=== PATIENT | female | born 1945 | race African-American/Black ===

== ENCOUNTER 2020-03-18 13:00 | Inpatient (IN) ==
[2020-03-18] MEDS ORDERED: SODIUM CHLORIDE 0.9% 1,000 ML IV STA (13:35)
[2020-03-18 14:35] LABS: Basophils % 0.2 % (0.0-0.8); Eosinophils % 0.4 % (0.00-10.9); Hematocrit 33.7 VOL% (35.7-47.0); Hemoglobin 10.7 GM/DL (12.0-16.0); Immature Granulocytes % 0.6 %; Immature Granulocytes Absolute 0.05 #; Lymphocytes % 11.4 % (21.3-54.2); Mean Corpuscular HGB Conc 31.8 GM/DL (32-36); Mean Corpuscular Volume 88.7 FL (87-102); Mean Platelet Volume 11.7 FL (9.6-12.0); Monocytes % 7.6 % (1.7-12.7); Neutrophils % 79.8 % (38.7-73.9); Platelet Count 194 T/CUMM (130-400); Red Cell Distribution Width 14.8 % (9.3-17.3); White Blood Count 8.9 T/CUMM (4-12)
[2020-03-18 14:50] LABS: Alanine Aminotransferase 17 U/L (13-56); Albumin 2.6 G/DL (3.4-5.0); Alkaline Phosphatase 95 U/L (45-117); Aspartate Amino Transferase 23 U/L (0-37); Bilirubin,Total < 0.39 MG/DL (0.2-1.0); Blood Urea Nitrogen 69 MG/DL (7-18); Estimated Glom Filtration Rate 33 ML/MIN; Ferritin 381.9 ng/ml (8-252); Glucose 201 MG/DL (74-106); Osmolality,Calculated 300.7 MOS/KG (273-304); Total Protein 7.4 G/DL (6.4-8.3)
[2020-03-18] MEDS ORDERED: PIPERACILLIN/TAZOBACTAM 3,375 MG in SODIUM CHLORIDE 0.9% 100 ML IV STA (15:13)
[2020-03-18 15:14] LABS: Bacteria,Urine Many /HPF (Few); Bilirubin,Urine Negative (Negative); Blood, Urine Negative (Negative); Glucose,Urine (UA) Negative (Negative); Ketones,Urine Negative (Negative); Mucus,Urine Occasional /LPF (Occasional); Nitrite,Urine Positive (Negative); Protein,Urine Negative; RBC,Urine 1 /HPF (0-4); Urine Appearance Slightly Hazy (Clear); Urine Color Yellow (Yellow); Urine Specific Gravity 1.016 (1.001-1.035); Urine Urobilinogen < 2.0 EU/DL (0.2-1.0); WBC,Urine 10 /HPF (0-6)
[2020-03-18] MEDS ORDERED: DEXAMETHASONE 4 MG/1 ML VIAL IV STA (15:15)
[2020-03-18] MEDS ORDERED: AZITHROMYCIN INJ 500 MG in SODIUM CHLORIDE 0.9% 250 ML IV STA (15:32)
[2020-03-18] MEDS ORDERED: ZALEPLON 5 MG CAPSULE PO PRN (15:35)
[2020-03-18] MEDS ORDERED: DEXTROSE 50% 25 GM/50 ML VIAL IV PRN ×2 (15:35)
[2020-03-18] MEDS ORDERED: GLUCAGON 1 MG VIAL IM PRN (15:35)
[2020-03-18] MEDS ORDERED: ONDANSETRON 4 MG/2 ML VIAL IV PRN (15:35)
[2020-03-18] MEDS ORDERED: ACETAMINOPHEN 325 MG TABLET PO PRN (15:35)
[2020-03-18] MEDS: ENOXAPARIN 40 MG/0.4 ML SYRINGE SUBCUT SCH (16:37)
[2020-03-18] MEDS: INSULIN REGULAR 100 UNIT/ML SUBCUT SCH ×2 (18:00→22:30)
[2020-03-18] MEDS: SODIUM CHLORIDE 0.9% 1,000 ML IV SCH (18:00)
[2020-03-18] MEDS: CETIRIZINE 5 MG TABLET PO SCH (18:30)
[2020-03-18] MEDS ORDERED: ALBUTEROL INHALER 18 GM INH PRN (19:29)
[2020-03-19] MEDS ORDERED: INFLUENZA VIRUS VACCINE 0.5 ML SYRINGE IM ONE (00:47)
[2020-03-19] MEDS: ENOXAPARIN 40 MG/0.4 ML SYRINGE SUBCUT SCH (04:30)
[2020-03-19 05:40] LABS: Basophils % 0.2 % (0.0-0.8); Hematocrit 36.6 VOL% (35.7-47.0); Hemoglobin 11.7 GM/DL (12.0-16.0); Immature Granulocytes % 0.5 %; Immature Granulocytes Absolute 0.03 #; Lymphocytes # 0.6 10*3/uL (1.4-4.0); Lymphocytes % 9.1 % (21.3-54.2); Mean Corpuscular Volume 89.3 FL (87-102); Mean Platelet Volume 12.1 FL (9.6-12.0); Monocytes % 3.1 % (1.7-12.7); Neutrophils % 87.1 % (38.7-73.9); Platelet Count 173 T/CUMM (130-400); Red Cell Distribution Width 14.6 % (9.3-17.3); White Blood Count 6.1 T/CUMM (4-12)
[2020-03-19 06:00] LABS: Platelet Estimate Adequate
[2020-03-19 06:15] LABS: Albumin 2.4 G/DL (3.4-5.0); Bilirubin,Total 0.8 MG/DL (0.2-1.0); Ferritin 412.3 ng/ml (8-252); Osmolality,Calculated 298.5 MOS/KG (273-304); Total Protein 7.4 G/DL (6.4-8.3)
[2020-03-19] MEDS ORDERED: SODIUM POLYSTYRENE SULFATE 15 GM/60 ML BOTTLE PO STA (07:43)
[2020-03-19] MEDS: INSULIN REGULAR 100 UNIT/ML SUBCUT SCH ×4 (08:46→20:22)
[2020-03-19] MEDS: ZINC GLUCONATE 50 MG TABLET PO SCH (08:47)
[2020-03-19] MEDS: CLOPIDOGREL 75 MG TABLET PO SCH (08:47)
[2020-03-19] MEDS: ASCORBIC ACID 500 MG TABLET PO SCH (08:47)
[2020-03-19] MEDS: CETIRIZINE 5 MG TABLET PO SCH (08:47)
[2020-03-19] MEDS: CHOLECALCIFEROL 1,000 UNIT TABLET PO SCH (08:47)
[2020-03-19] MEDS: FUROSEMIDE 20 MG TABLET PO SCH (08:47)
[2020-03-19] MEDS: FAMOTIDINE 20 MG TABLET PO SCH (08:47)
[2020-03-19] MEDS: DEXAMETHASONE 10 MG/1 ML VIAL IV SCH (08:53)
[2020-03-19] MEDS: SODIUM BICARB INJ 100 MEQ in SODIUM CHLORIDE 0.45% 1,000 ML IV SCH (14:45)
[2020-03-19] MEDS: LEVOFLOXACIN INJ 750 MG in PREMIX 1 EACH IV SCH (15:26)
[2020-03-20] MEDS: SODIUM BICARB INJ 100 MEQ in SODIUM CHLORIDE 0.45% 1,000 ML IV SCH (00:50)
[2020-03-20] MEDS: SODIUM CHLORIDE 0.9% 1,000 ML IV SCH ×2 (00:53→00:54)
[2020-03-20 06:41] LABS: Hematocrit 33.4 VOL% (35.7-47.0); Hemoglobin 11.2 GM/DL (12.0-16.0); Immature Granulocytes % 0.7 %; Immature Granulocytes Absolute 0.05 #; Lymphocytes # 1.1 10*3/uL (1.4-4.0); Lymphocytes % 14.4 % (21.3-54.2); Mean Corpuscular HGB Conc 33.5 GM/DL (32-36); Mean Corpuscular Volume 85.4 FL (87-102); Mean Platelet Volume 11.9 FL (9.6-12.0); Monocytes % 6.9 % (1.7-12.7); NRBC # 0.03 10*3/uL; Platelet Count 177 T/CUMM (130-400); Red Blood Count 3.91 MC/CUMM (3.8-5.5); Red Cell Distribution Width 14.3 % (9.3-17.3); White Blood Count 7.3 T/CUMM (4-12)
[2020-03-20 06:58] LABS: Calcium 8.5 MG/DL (8.5-10.1); Ferritin 406.6 ng/ml (8-252); Osmolality,Calculated 297.1 MOS/KG (273-304)
[2020-03-20 08:03] LABS: Sedimentation Rate-Westergren 95 MM/HR (0-30)
[2020-03-20] MEDS: INSULIN REGULAR 100 UNIT/ML SUBCUT SCH ×4 (08:37→20:55)
[2020-03-20] MEDS: DEXAMETHASONE 10 MG/1 ML VIAL IV SCH (08:37)
[2020-03-20] MEDS: ASCORBIC ACID 500 MG TABLET PO SCH (08:37)
[2020-03-20] MEDS: CETIRIZINE 5 MG TABLET PO SCH (08:37)
[2020-03-20] MEDS: ENOXAPARIN 40 MG/0.4 ML SYRINGE SUBCUT SCH (08:37)
[2020-03-20] MEDS: CHOLECALCIFEROL 1,000 UNIT TABLET PO SCH (08:38)
[2020-03-20] MEDS: ZINC GLUCONATE 50 MG TABLET PO SCH (08:38)
[2020-03-20] MEDS: FUROSEMIDE 20 MG TABLET PO SCH (08:38)
[2020-03-20] MEDS: FAMOTIDINE 20 MG TABLET PO SCH (08:38)
[2020-03-20] MEDS: CLOPIDOGREL 75 MG TABLET PO SCH (08:38)
[2020-03-20] MEDS: ALBUTEROL INHALER 18 GM INH SCH (18:05)
[2020-03-21] MEDS: ALBUTEROL INHALER 18 GM INH SCH ×4 (00:32→19:09)
[2020-03-21 04:55] LABS: Basophils % 0.1 % (0.0-0.8); Hematocrit 36.1 VOL% (35.7-47.0); Hemoglobin 11.8 GM/DL (12.0-16.0); Immature Granulocytes % 0.7 %; Immature Granulocytes Absolute 0.05 #; Lymphocytes # 1.2 10*3/uL (1.4-4.0); Mean Corpuscular HGB Conc 32.7 GM/DL (32-36); Monocytes % 7.7 % (1.7-12.7); Neutrophils % 74.5 % (38.7-73.9); Platelet Count 177 T/CUMM (130-400); Red Blood Count 4.15 MC/CUMM (3.8-5.5)
[2020-03-21 05:15] LABS: Calcium 8.7 MG/DL (8.5-10.1); Ferritin 374.9 ng/ml (8-252); Osmolality,Calculated 299.1 MOS/KG (273-304)
[2020-03-21 06:20] LABS: Sedimentation Rate-Westergren 75 MM/HR (0-30)
[2020-03-21] MEDS ORDERED: DEXAMETHASONE 10 MG/1 ML VIAL IV SCH (09:00)
[2020-03-21] MEDS: ASCORBIC ACID 500 MG TABLET PO SCH (09:14)
[2020-03-21] MEDS: CHOLECALCIFEROL 1,000 UNIT TABLET PO SCH (09:14)
[2020-03-21] MEDS: CLOPIDOGREL 75 MG TABLET PO SCH (09:14)
[2020-03-21] MEDS: INSULIN REGULAR 100 UNIT/ML SUBCUT SCH ×4 (09:15→21:10)
[2020-03-21] MEDS: ZINC GLUCONATE 50 MG TABLET PO SCH (09:15)
[2020-03-21] MEDS: FUROSEMIDE 20 MG TABLET PO SCH (09:15)
[2020-03-21] MEDS: FAMOTIDINE 20 MG TABLET PO SCH (09:15)
[2020-03-21] MEDS: ENOXAPARIN 40 MG/0.4 ML SYRINGE SUBCUT SCH (09:15)
[2020-03-21] MEDS: CETIRIZINE 5 MG TABLET PO SCH (09:17)
[2020-03-21] MEDS ORDERED: TUBERCULIN SKIN TEST 0.1 ML SYRINGE INTRADERM ONE (11:42)
[2020-03-21] MEDS: LEVOFLOXACIN INJ 750 MG in PREMIX 1 EACH IV SCH (17:10)
[2020-03-21] MEDS ORDERED: INSULIN GLARGINE 100 UNIT/ML SUBCUT SCH (21:00)
[2020-03-22] MEDS: ALBUTEROL INHALER 18 GM INH SCH ×2 (00:45→09:10)
[2020-03-22 05:54] LABS: Basophils % 0.1 % (0.0-0.8); Eosinophils % 0.3 % (0.00-10.9); Hematocrit 34.1 VOL% (35.7-47.0); Hemoglobin 11.3 GM/DL (12.0-16.0); Immature Granulocytes % 0.6 %; Immature Granulocytes Absolute 0.04 #; Lymphocytes # 1.8 10*3/uL (1.4-4.0); Lymphocytes % 25.8 % (21.3-54.2); Mean Corpuscular HGB Conc 33.1 GM/DL (32-36); Mean Corpuscular Volume 85.3 FL (87-102); Mean Platelet Volume 11.4 FL (9.6-12.0); Monocytes % 7.3 % (1.7-12.7); NRBC # 0.02 10*3/uL; Neutrophils % 65.9 % (38.7-73.9); Platelet Count 179 T/CUMM (130-400); Red Cell Distribution Width 13.7 % (9.3-17.3); White Blood Count 6.8 T/CUMM (4-12)
[2020-03-22 06:15] LABS: Calcium 8.5 MG/DL (8.5-10.1); Osmolality,Calculated 289.3 MOS/KG (273-304)
[2020-03-22] MEDS ORDERED: ZINC OXIDE PASTE 113 GM TUBE TOP SCH (09:00)
[2020-03-22] MEDS: ENOXAPARIN 40 MG/0.4 ML SYRINGE SUBCUT SCH (09:11)
[2020-03-22] MEDS: CETIRIZINE 5 MG TABLET PO SCH (09:11)
[2020-03-22] MEDS: CHOLECALCIFEROL 1,000 UNIT TABLET PO SCH (09:11)
[2020-03-22] MEDS: ZINC GLUCONATE 50 MG TABLET PO SCH (09:11)
[2020-03-22] MEDS: INSULIN REGULAR 100 UNIT/ML SUBCUT SCH ×2 (09:11→12:02)
[2020-03-22] MEDS: FAMOTIDINE 20 MG TABLET PO SCH (09:11)
[2020-03-22] MEDS: CLOPIDOGREL 75 MG TABLET PO SCH (09:11)
[2020-03-22] MEDS: ASCORBIC ACID 500 MG TABLET PO SCH (09:11)
[2020-03-22] MEDS: FUROSEMIDE 20 MG TABLET PO SCH (09:11)
[2020-03-22 12:46] VITALS: BP 121/93
== END 2020-03-22 12:20 | disposition swing bed (61) | DRG 871 ==
LOC: N.ED 13:00 → N.EDINP 13:00 → SUATTDRO 16:29 → N.2E 19:22
PROVIDERS: ADMIT Internal Medicine; ATTEND Family Medicine